=== PATIENT | male | born 1975 | race Two or more races ===

== ENCOUNTER 2021-11-06 15:05 | Emergency (ER) | payer SELFPAY ==
--- NOTE | ~2021-11-06 | XR_ITS ---
XR chest 2V DATE: 11/06/2021 15:35 INDICATION: Sternal chest pain for 5 days, radiating to left shoulder 3 days. Smoker. TECHNIQUE: PA and lateral views COMPARISON: None FINDINGS: Normal heart size. No hilar or mediastinal enlargement. No pulmonary infiltrate or consolid ation, pleural effusion or pulmonary vascular congestion or pneumothorax. There are prominent bridgin g osteophytes on the right at T7-T8 and T8-T9. IMPRESSION: No active cardiopulmonary disease Reviewed, dictated and finalized at location A. LLMENT COORDINATOR
--- NOTE | 2021-11-06 15:09 | ECG_ITS ---
Measurements Intervals [place] Rate: 86 P: 48 ND: 148 QRS: 61 QRSD: 100 T: 46 QT: 365 QTc: 437 Interpretive Statements SINUS RHYTHM INCOMPLETE RIGHT BUNDLE BRANCH BLOCK BASELINE WANDER- V1 BORDERLINE ECG Electronically Signed On 11-06-2021 15:41:28 PARTS CONTROL CLERK by Mark Anthony Shen D.O.
[2021-11-06 15:12] VITALS: BP 156/87; PULSE 90; RESP 18; TEMP 36.7; O2SAT 100
[2021-11-06 16:33] VITALS: BP 157/95; PULSE 85; RESP 16; TEMP 36.4; O2SAT 99
[2021-11-06 16:35] LABS: Basophils Absolute Auto 0.1 K/mm3 (0.0-0.1); Basophils Percent Auto 0.7 % (0.2-1.2); Eosinophils Absolute Auto 0.3 K/mm3 (0-0.3); Eosinophils Percent Auto 2.6 % (0-4.4); Hematocrit 47.3 % (42.0-52.0); Immature Granulocyte Absolute 0.09 K/mm3 (0.00-0.031); Immature Granulocyte Percent A 0.8 % (0-0.5); Lymphocytes Absolute Auto 3.52 K/mm3 (0.9-3.2); Lymphocytes Percent Auto 30.8 % (18.3-44.2); Mean Corpuscular HGB Conc 33.8 g/dl (32-36); Mean Corpuscular Hemoglobin 32.1 pg (26-34); Mean Corpuscular Volume 94.8 fl (80-100); Mean Platelet Volume 8.7 fl (7.4-10.4); Monocytes Absolute Auto 0.8 K/mm3 (0.1-0.6); Monocytes Percent Auto 6.6 % (2.6-8.5); Neutrophils Absolute Auto 6.7 K/mm3 (1.3-6.7); Neutrophils Percent Auto 58.5 % (45.5-73.1); Platelet Count Result 234 k/mm3 (150-375); Red Blood Count 4.99 M/mm3 (4.6-6.20); Red Cell Distribution Width 12.8 % (11.5-14.5); White Blood Count 11.4 K/mm3 (4.5-10.0)
[2021-11-06 16:45] LABS: Alanine Aminotransferase 41 U/L (4-50); Albumin Level 4.7 g/dL (3.5-5.1); Alkaline Phosphatase 90 U/L (38-126); Anion Gap 10 mmol/L (8-16); Aspartate Amino Transferase 49 U/L (17-59); Bilirubin,Total 0.6 mg/dL (0.2-1.3); Blood Urea Nitrogen 12 mg/dL (9-20); Calcium 9.4 mg/dL (8.4-10.2); Carbon Dioxide 22 mmol/L (22-30); Chloride 108 mmol/L (98-107); Estimated CRCL calculation 116 ml/min; Estimated Glomerular Filt Rate > 60; Glucose 92 mg/dL (65-110); Lipase 130 U/L (23-300); Potassium 3.8 mmol/L (3.4-5.0); Prothrombin Time 13.1 Seconds (11.1-14.7); Sodium 140 mmol/L (137-145)
[2021-11-06 16:46] LABS: Partial Thromboplastin Time 39.4 SECONDS (22.3-36.8)
[2021-11-06 16:57] LABS: Troponin I < 0.012 ng/mL (0.000-0.034)
[2021-11-06 17:30] VITALS: BP 146/80; PULSE 88; RESP 16; O2SAT 100
--- NOTE | 2021-11-06 18:34 | ED.CHESTPAIN ---
HPI - Chest Pain General Chief Complaint: Chest Pain Stated Complaint: chest pain Time Seen by Provider: 11/06/21 16:54 Source: patient and RN notes reviewed Limitations: no limitations History of Present Illness HPI narrative: 46-year-old male with presents [facility] department for evaluation of 4 days of of left chest pain that is worsened with inspiration. Patient states over the last 4 days he has had a sharp left-sided chest pain that does worsen with inspiration. Patient states the pain is also worsened when he coughs or lays down. Patient denies any associated shortness of breath. Patient did have COVID over the hol. Patient states he was only sick for approximately 2 days. Patient did have a long plane flight approximately 3 weeks ago. Patient denies any prior history of AR. Patient did have a stress test approximately 5 years ago which was negative. Patient denies any prior history of PE or DVT. Patient is a smoker. Related Data Allergies Allergy/AdvReac Type Severity Reaction Status Date / Time No Known Allergies Allergy Verified 11/06/21 16:17 Review of Systems Review of Systems: CONSTITUTIONAL: Denies fever, chills, or sweats. EYES: Denies visual changes, redness, or discharge. ENT: Denies rhinorrhea, congestion, sore throat, or otalgia. CARDIOVASCULAR: Left-sided chest pain worsened with inspiration and cough RESPIRATORY: Denies cough or dyspnea. GASTROINTESTINAL: Denies abdominal pain, nausea, vomiting, or diarrhea. GENITOURINARY: Denies dysuria or hematuria. SKIN: Denies rash or itching. MUSCULOSKELETAL: Denies back pain, joint pain, or myalgia. NEUROLOGIC: Denies headache, numbness, or weakness. Exam Narrative: APPEARANCE: Well appearing, no pain, no distress, well-nourished. HEAD: normocephalic, atraumatic. EYES: PERRLA/EOMI, conjunctivae clear. NECK: Supple. No adenopathy, no masses. RESPIRATORY: Airway patent, respirations nonlabored. Clear to auscultation bilaterally, no rales, rhonchi, wheezing. CARDIOVASCULAR: Regular rate and rhythm without murmurs rubs or gallops. Reproducible left-sided chest wall pain with palpation and with deep inspiration ABDOMINAL: Soft, nontender, nondistended, normal bowel sounds MUSCULOSKELETAL: Moves all extremities. Strength/ROM intact, no lower extremity edema. Patient did have calf tenderness on the left. NEURO: Alert. Cranial nerves II through XII intact. Neurologically intact SKIN: Warm, dry. Normal Color Course Course Emergency Course: Patient's D-dimer as not elevated. Patient is not tachycardic and patient is saturating well on room air. Patient does have a recent history of Covid but feels he is fully recovered. Patient did have negative serial troponins. EKG showed normal sinus rhythm with no evidence of acute STEMI. Patient symptoms are consistent with pleurisy. Low concern for PE or DVT due to the negative D-dimer. Patient was encouraged to try NSAIDs to help with his symptoms. Patient was also encouraged to have close follow-up with his primary care physician to determine if they want to do any additional outpatient cardiac testing. All questions and concerns were addressed. Patient was in no distress at time of discharge from the [facility] department. Vital Signs Vital signs: Vital Signs Temperature 98.1 F 11/06/21 15:12 Pulse Rate 90 11/06/21 15:12 Respiratory Rate 18 11/06/21 15:12 Blood Pressure 156/87 H 11/06/21 15:12 Pulse Oximetry 100 11/06/21 15:12 Temperature 97.6 F 11/06/21 20:49 Pulse Rate 73 11/06/21 20:49 Respiratory Rate 16 11/06/21 20:49 Blood Pressure 146/70 H 11/06/21 20:49 Pulse Oximetry 100 11/06/21 19:10 MDM - Chest Pain Lab Data Attestation: I reviewed the patient's lab results. Result diagrams: 11/06/21 16:21 11/06/21 16:21 Labs: Lab Results 11/06/21 11/06/21 11/06/21 Range/Units 16:21 16:21 16:21 WBC 11.4 H (4.5-10.0) K/mm3 RBC 4.99 (4
--- NOTE | 2021-11-06 18:45 | PC.NURSE ---
Called lab and spoke to Oralia to add on D-Dimer
[2021-11-06 18:58] LABS: D Dimer 0.35 ug/mL (<0.48)
[2021-11-06 19:10] VITALS: BP 145/74; PULSE 90; RESP 16; TEMP 36.4; O2SAT 100
[2021-11-06 19:38] LABS: Troponin I < 0.012 ng/mL (0.000-0.034)
[2021-11-06 20:30] VITALS: BP 144/72; PULSE 78; RESP 16
[2021-11-06] MEDS: KETOROLAC 15 MG/ML VIAL (*BKC) IV PUSH (20:30)
[2021-11-06 20:49] VITALS: BP 146/70; PULSE 73; RESP 16; TEMP 36.4
== END 2021-11-06 20:50 | disposition home or self-care (01) ==
PROVIDERS: Emergency Medicine; Emergency Provider Emergency Medicine
DX: R07.1 Chest pain on breathing (principal); Z86.16 Personal history of COVID-19
CPT/HCPCS: 36415; 71046; 80053; 83690; 84484; 85025; 85380; 85610; 85730; 93005; 96374; 99284; J1885